=== PATIENT | female | born 1990 | race Caucasian/White ===

== ENCOUNTER → 2018-11-06 18:46 | Outpatient (CLI) | payer OTHER, SELFPAY ==
[2018-11-06 14:15] VITALS: BMI 33.3
[2018-11-06 23:13] LABS: Chlamydia Trachomatis by PCR Negative (Negative); Neisserai gonorrhoeae by PCR Negative (Negative); Probe Check PASS; Sample Adequacy Control PASS; Specimen Processing Control PASS
[2018-11-12 11:07] LABS: HPV APTIMA, High Risk Negative (Negative)
== END ==
PROVIDERS: Referring Provider Obstetrics & Gynecology; Visit Provider Obstetrics & Gynecology
DX: Z34.90 Encounter for supervision of normal pregnancy, unspecified, unspecified trimester (principal); Z12.4 Encounter for screening for malignant neoplasm of cervix
CPT/HCPCS: 87086; 87088; 87491; 87591; 87624; 88175; G0145

== ENCOUNTER → 2018-11-21 14:30 | Outpatient (CLI) | payer OTHER, SELFPAY ==
[2018-11-21 14:22] VITALS: BMI 33.3
[2018-11-21 16:13] LABS: Absolute Neutrophil Count 5.1 X10^3/uL (2.0-7.7); Basophil# 0.02 X10^3/uL; Basophil% 0.3 % (0-1); Eosinophil# 0.15 X10^3/uL; Eosinophils% 2.1 % (0-5); Hematocrit 37.5 % (37-47); Hemoglobin 12.1 g/dl (12.0-15.0); Lymphocyte % 20.6 % (19-41); Mean Corp Hgb Conc 32.3 g/gl (32-36); Mean Corpuscular Hgb 29.2 pg (27.0-32.0); Mean Corpuscular Volume 90.6 fL (81-99); Monocyte# 0.55 X10^3/uL; Monocyte% 7.6 % (0-10); Neutrophil # 5.05 X10^3/uL (2.7-7.7); Neutrophil % 69.3 % (47-70); Platelet Count 293 K/mm3 (150-450); RBC Distribution Width CV 13.6 % (11.6-14.6); RBC Distribution Width SD 44.5 fl (35.1-43.9); Red Blood Count 4.14 M/mm3 (4.2-5.4); White Blood Count 7.3 K/mm3 (4.4-11.0)
[2018-11-21 16:14] LABS: POSITIVE COUNT NO; POSITIVE DIFFERENTIAL NO; POSITIVE MORPHOLOGY NO
[2018-11-21 17:19] LABS: HIV - WCH Non-Reactive (Nonreactive); Rubella IgG 273.2 IU/mL
[2018-11-24 11:08] LABS: HEPATITIS B SURFACE AG Negative (Negative)
[2018-11-28 01:29] LABS: Rapid Plasmin Reagin (RPR) NONREACTIVE (NONREACTIVE)
== END ==
PROVIDERS: Referring Provider Obstetrics & Gynecology; Visit Provider Obstetrics & Gynecology
DX: Z34.90 Encounter for supervision of normal pregnancy, unspecified, unspecified trimester (principal)
CPT/HCPCS: 36415; 85025; 86592; 86703; 86762; 86850; 86900; 87340

== ENCOUNTER → 2018-12-19 10:25 | Outpatient (CLI) | payer OTHER, SELFPAY ==
[2018-12-19 09:57] VITALS: BMI 33.3
== END ==
PROVIDERS: Referring Provider Obstetrics & Gynecology; Visit Provider Obstetrics & Gynecology
DX: Z34.82 Encounter for supervision of other normal pregnancy, second trimester (principal)
CPT/HCPCS: 36415

== ENCOUNTER → 2019-03-20 | Outpatient (CLI) | payer OTHER, SELFPAY ==
[2019-03-20 10:51] VITALS: BMI 33.3
[2019-03-20 12:13] LABS: Absolute Lymphocyte Count 1.45 X10^3/uL (0.83-4.51); Absolute Neutrophil Count 6.1 X10^3/uL (2.0-7.7); Basophil# 0.02 X10^3/uL; Basophil% 0.2 % (0-1); Eosinophil# 0.17 X10^3/uL; Eosinophils% 2.1 % (0-5); Hematocrit 33.6 % (37-47); Hemoglobin 10.9 g/dL (12.0-15.0); Lymphocyte # 1.45 X10^3/ul (4.0); Lymphocyte % 17.5 % (19-41); Mean Corp Hgb Conc 32.4 g/dL (32-36); Mean Corpuscular Volume 89.4 fL (81-99); Monocyte# 0.51 X10^3/uL; Monocyte% 6.2 % (0-10); NRBC Flagged by Analyzer 0 % (0-5); Neutrophil % 73.5 % (47-70); Platelet Count 285 K/mm3 (150-450); RBC Distribution Width CV 13.3 % (11.6-14.6); RBC Distribution Width SD 43.6 fl (35.1-43.9); Red Blood Count 3.76 M/mm3 (4.2-5.4); White Blood Count 8.3 K/mm3 (4.4-11.0)
[2019-03-20 12:21] LABS: Glucose Challenge Gest 1H 50g 102 mg/dL (70-140)
== END | disposition home or self-care (01) ==
LOC: PAVLAB 11:35
PROVIDERS: Referring Provider Obstetrics & Gynecology; Visit Provider Obstetrics & Gynecology
DX: Z34.92 Encounter for supervision of normal pregnancy, unspecified, second trimester (principal)
CPT/HCPCS: 36415; 82950; 85025; 86850; 86900

== ENCOUNTER → 2019-05-15 13:03 | Outpatient (CLI) | payer OTHER, SELFPAY ==
[2019-05-15 12:21] VITALS: BMI 33.3
== END ==
PROVIDERS: Referring Provider Obstetrics & Gynecology; Visit Provider Obstetrics & Gynecology
DX: Z34.80 Encounter for supervision of other normal pregnancy, unspecified trimester (principal)
CPT/HCPCS: 87081

== ENCOUNTER → 2019-05-29 09:33 | Outpatient (CLI) | payer OTHER, SELFPAY ==
[2019-05-29 09:03] VITALS: BMI 33.3
[2019-05-29 09:59] LABS: Protein, Urine (Random) 26.3 mg/dL (<11.9); Protein:Creat Ratio 137 mg/g CRE (0-200)
== END ==
PROVIDERS: Visit Provider Obstetrics & Gynecology
DX: O16.3 Unspecified maternal hypertension, third trimester (principal); Z3A.00 Weeks of gestation of pregnancy not specified
CPT/HCPCS: 82570; 84156

== ENCOUNTER → 2019-06-05 11:43 | Outpatient (CLI) | payer OTHER, SELFPAY ==
[2019-06-05 11:32] VITALS: BMI 33.3
[2019-06-05 12:00] LABS: Protein, Urine (Random) 10.9 mg/dL (<11.9); Protein:Creat Ratio 195 mg/g CRE (0-200)
== END ==
PROVIDERS: Visit Provider Obstetrics & Gynecology
DX: O13.9 Gestational [pregnancy-induced] hypertension without significant proteinuria, unspecified trimester (principal); Z3A.00 Weeks of gestation of pregnancy not specified
CPT/HCPCS: 82570; 84156

== ENCOUNTER 2019-06-11 18:00 | Inpatient (IN) | payer OTHER, SELFPAY ==
[2019-03-20 10:51] VITALS: BMI 33.3
[2019-06-11 15:08] VITALS: BMI 33.3
[2019-06-11 16:10] VITALS: BMI 40.2
[2019-06-11 16:18] LABS: Hematocrit 31.8 % (37-47); Hemoglobin 10.1 g/dL (12.0-15.0); Mean Corp Hgb Conc 31.8 g/dL (32-36); Mean Corpuscular Hgb 27.3 pg (27.0-32.0); Mean Corpuscular Volume 85.9 fL (81-99); Mean Platelet Vol. 10.1 fl (6.2-12.0); Platelet Count 267 K/mm3 (150-450); RBC Distribution Width CV 13.7 % (11.6-14.6); RBC Distribution Width SD 42.6 fl (35.1-43.9); White Blood Count 7.5 K/mm3 (4.4-11.0)
[2019-06-11 16:32] LABS: Prothrombin Time (Protime)PT. 13.2 SECONDS (11.7-14.9)
[2019-06-11 16:33] LABS: Partial Thromboplast Time 29.9 Seconds (24.1-36.2)
[2019-06-11 17:01] LABS: AST(SGOT) 14 U/L (15-37); Alanine Aminotransfer ALT/SGPT 13 U/L (13-56); EST Glomerular Filtration Rate 103 mL/min (>60); Est Glom Filt Rate - Afr Amer 124 mL/min (>60); Estimated Creatinine Clearance 130.15 ml/min; Uric Acid 4.2 mg/dL (2.6-6.0)
[2019-06-11 17:04] LABS: Protein, Urine (Random) < 6.0 mg/dL (<11.9)
--- NOTE | 2019-06-11 18:09 | PCM.HP.OB ---
- Problem List (1) Anemia affecting Status: Acute Qualifiers: Trimester: third trimester Qualified Code(s): O99.013 - Anemia complicating , third trimester Comment: iron (2) Influenza vaccination declined Status: Acute Comment: 06/05/2019 (3) Obesity affecting Status: Acute Qualifiers: Trimester: third trimester Qualified Code(s): O99.213 - Obesity complicating , third trimester Comment: Declined 1 hour glucose, encouraged healthy weight gain (4) Status: Acute Qualifiers: Weeks of gestation: 39 weeks Qualified Code(s): Z3A.39 - 39 weeks gestation of Comment: NIPT- low risk girl, declined Carrier and AFP screening. Normal anatomy (5) Rh negative status during Status: Acute Qualifiers: Trimester: third trimester Qualified Code(s): O26.893 - Other specified related conditions, third trimester; Z67.91 - Unspecified blood type, Rh negative Comment: O negative; RhoGam given 03/20 (6) Supervision of other normal Status: Acute Comment: PRR YOVANY 06/12/2019 girl (secret) PC: Kaylin Spouse: Daniel History Date of Admission: 06/11/19 Final YOVANY: 06/12/19 Gestational age: 40 Weeks and 0 Days History of this : This is a 29 year-old, at 40 weeks gestational age presents with elevated blood pressures in the 140s over 90s to 150s over 100s. Patient denies any headaches blurry vision vaginal bleeding or loss of fluid. Patient has had an uncomplicated prior to her routine visit today. Labs were within normal limits and there is no proteinuria present but due to persistent elevated blood pressures the decision was made for induction of labor due to gestational hypertension. Surgical History: Surgical History (Last Reviewed 06/11/19 @ 15:08 by Saniya Barraza) History of tonsillectomy Z90.89 Allergies ciprofloxacin [From Cipro] Allergy (Mild, Verified 06/11/19 16:14) Other Home Medications: Home Medications vitamin#30 30 mg iron-10 mg iron-folic acid 1 mg-omg3 capsule 1 cap PO DAILY cap 11/06/18 Smoking Status: Never smoker Alcohol: None Number of Fetus(es): 1 NST - FHR Rate Baby A Baseline: 130 Variability:: Moderate Accelerations:: 15 x 15 Decelerations:: None NST Reactive:: Yes FHR Category:: Category I Uterine Activity:: no regular History Past Pregnancies: Past Pregnancies 2 previous term uncomplicated home births Labs: Mom's Labs & Results 06/11/19 06/11/19 06/11/19 16:00 16:00 16:00 WBC 7.5 RBC 3.70 L Hgb 10.1 L Hct 31.8 L MCV 85.9 MCH 27.3 MCHC 31.8 L RDW Std Deviation 42.6 RDW Coeff of Kellee 13.7 Plt Count 267 MPV 10.1 PT 13.2 INR 1.0 APTT 29.9 Creatinine 0.70 Estim Creat Clear Calc 130.15 Est GFR (MDRD) Af Amer 124 Est GFR (MDRD) Non-Af 103 Uric Acid 4.2 AST 14 L ALT 13 U Random Total Protein Urine Creatinine Protein/Creatinin Ratio Blood Type Antibody Screen 06/11/19 06/11/19 16:00 16:20 WBC RBC Hgb Hct MCV MCH MCHC RDW Std Deviation RDW Coeff of Kellee Plt Count MPV PT INR APTT Creatinine Estim Creat Clear Calc Est GFR (MDRD) Af Amer Est GFR (MDRD) Non-Af Uric Acid AST ALT U Random Total Protein < 6.0 Urine Creatinine 23.80 Protein/Creatinin Ratio TNP Blood Type O NEGATIVE Antibody Screen NEGATIVE Course Did the patient receive Yes care? Labs Blood Type: O RH: NEGATIVE RPR/VDRL/Syphilis Nonreactive Rubella status Immune HbSAg Negative Date Done: 11/21/18 Chlamydia Negative Gonorrhea Negative HIV/AIDS Non-Reactive Group B Strep: Negative Current Obstetrical History Gestational Diabetes No Incompetent Cervix No Infertility No IUGR No Macrosomia No: MEASURING A LITTLE LARGE ON ULTRASOUND. NEVER SAID MACROSOMIA Hypertension/Pre-eclampsia Yes: THROUGHOUT Placenta Previa/Abruption No PTL/PROM No Uterine anomaly No Oligohydramnios No Polyhydramnios No Multiple gestation No Past Medical History Asthma No Diabetes No Hypertension No Heart disease No Mitral valve prolapse No Neurologic/Seizure disorder/ No Migraines Kidney disease No Liver disease No Varicosities Yes: LEFT KNEE Clotting disorders/Hx of DVT No Thyroid Dysfunction No Other medical diseases No Psychiatric disorders No Major trauma No Abnormal PAP smear No Sleep apnea No Mammogram in the last 2 years No Social History Marital Status: Alleged father DANIEL Beaver Smoking No Smoking Status Never smoker How long have you used none substances (years)? Expected Infant Delivery Method: Spontaneous Vaginal Review of Systems Constitutional: Denies: Fever, Malaise Eyes: Denies: Blurred vision, Vision Change HEENT: Denies: Head Aches, Visual Changes Cardiovascular: Denies: Chest Pain, Palpitations Respiratory: Denies: Cough, Shortness of Breath, Wheezing Gastrointestinal: Denies: Abdominal Pain, Diarrhea, Nausea, Vomiting Genitourinary: Denies: Dysuria, Hematuria Musculoskeletal: Denies: Joint Pain, Muscle pain Skin: Denies: Lesions, Rash Neurological: Denies: Blurred vision, Focal weakness, Headaches Psychiatric: Denies: Anxiety, Depression Endocrine: Denies: Heat/ Cold Intolerance Hematologic/ Lymphatic: Denies: Easy Bruising, Easy Bleeding Physical Exam General: Alert, Cooperative, No apparent distress HEENT: Atraumatic, Normocephalic. Negative for: Thyromegaly, Lymphadenopathy Cardiovascular: Regular rate Lungs: Normal air movement Abdomen: Soft, Non Tender, Gravid Neurological: Deep Tendon Reflexes 2+/4 and Symmetrical, Neuro grossly intact. Negative for: Clonus [employer]: Normal external genitalia. Negative for: Vulvar lesions Estimated gestational size: Appropriate for gestational size Presentation: Cephalic Cervix Dilation (cm): 3 Station: -2 Effacement (%): 70 Assessment/Plan All Active Problems (Last Reviewed 06/11/19 @ 15:08 by Saniya Barraza) Influenza vaccination declined (Acute) Anemia affecting (Acute) Rh negative status during (Acute) Obesity affecting (Acute) (Acute) Supervision of other normal (Acute) This is a 29 year-old, at 40 weeks gestational age presents IOL GHTN Patient presents IOL, plan management for , pitocin/AROM when needed. Pain management: Plans epidural. GBS negative. Management of any complications: Gestational hypertension?monitor blood pressures and treat if severely elevated I have reviewed the [facility] and made any clinically relevant updates.
[2019-06-11] MEDS: Oxytocin 30 units/NS 500 ml 30 UNITS/500 ML IV.SOLN IV (20:18)
[2019-06-11] MEDS: Lactated Ringers 1,000 ML 50 ML IV (20:18)
[2019-06-12] MEDS: Lactated Ringers 500 ML 999 ML IV (02:09)
[2019-06-12] MEDS: fentaNYL-bupivacaine (epidural) 100 ML BAG EPIDURAL (02:55)
[2019-06-12] MEDS: 0.9% Saline Lock 10 ML Syringe IV ×2 (04:56→10:18)
[2019-06-12] MEDS: Ondansetron 4 MG/2 ML Vial IV (04:56)
[2019-06-12] MEDS: Oxytocin 30 units/NS 500 ml 30 UNITS/500 ML IV.SOLN 334 UNITS IV (07:58)
[2019-06-12] MEDS: Naproxen 250 MG Tablet 500 MG PO (12:17)
[2019-06-12 15:41] VITALS: BP 119/77; PULSE 89; RESP 14; TEMP 36.7
[2019-06-12] MEDS: Acetaminophen 500 MG Tablet 1000 MG PO (17:36)
[2019-06-12 20:17] VITALS: BP 129/77; PULSE 84; RESP 16; TEMP 36.7; O2SAT 97
[2019-06-13 00:03] VITALS: BP 131/82; PULSE 89; RESP 18; TEMP 36.7; O2SAT 97
[2019-06-13] MEDS: 0.9% Saline Lock 10 ML Syringe IV (00:05)
[2019-06-13 04:07] VITALS: BP 137/87; PULSE 84; RESP 18; TEMP 37
--- NOTE | 2019-06-13 08:43 | PCM.OPRPT ---
Problem List (1) Anemia affecting Status: Acute Qualifiers: Trimester: third trimester Qualified Code(s): O99.013 - Anemia complicating , third trimester Comment: iron (2) Influenza vaccination declined Status: Acute Comment: 06/05/2019 (3) Obesity affecting Status: Acute Qualifiers: Trimester: third trimester Qualified Code(s): O99.213 - Obesity complicating , third trimester Comment: Declined 1 hour glucose, encouraged healthy weight gain (4) Status: Acute Qualifiers: Weeks of gestation: 39 weeks Qualified Code(s): Z3A.39 - 39 weeks gestation of Comment: NIPT- low risk girl, declined Carrier and AFP screening. Normal anatomy (5) Rh negative status during Status: Acute Qualifiers: Trimester: third trimester Qualified Code(s): O26.893 - Other specified related conditions, third trimester; Z67.91 - Unspecified blood type, Rh negative Comment: O negative; RhoGam given 03/20 (6) Supervision of other normal Status: Acute Comment: PRR YOVANY 06/12/2019 girl (secret) PC: Kaylin Spouse: Daniel Vaginal Delivery Maternal Presentation: Medically Indicated Induction iol ghtn Method of Induction: Pitocin Medical Reason for Induction: Gestational Hypertension Amniotic Membrane Rupture Type: Artificial Amniotic Fluid Description: Clear Final YOVANY: 06/12/19 Gestational age: 40 Weeks and 1 Days Surgery/ Procedure Performed: Spontaneous Vaginal Delivery Type of Anesthesia: Epidural Description of Procedure: Patient began pushing and delivered the head in the [KAYLYNN] presentation. The head was delivered atraumatically. The anterior and posterior shoulders delivered without complication followed by the rest of the and the infant was placed on the maternal abdomen. Delayed cord clamping was employed for approximately 60 seconds. Cord was clamped and cut and gentle traction was applied to the cord and the placenta delivered spontaneously immediately following it was noted to be intact with three-vessel cord. The perineum and vagina were inspected and noted to have a second-degree perineal laceration. There is significant scar tissue and disruption of normal anatomy inherently present likely due to HER-2 previous home births with repairs. While the patient was pushing it was evident that there was no integrity to the perineal body or the posterior vaginal wall and the labia were grossly distorted with a significant skin tag due to incomplete vaginal closure from previous delivery. Layers of the rectovaginal tissue underneath the vaginal mucosa posteriorly were reapproximated to restore integrity to the anatomy and then a running locking stitch was started at the apex of the laceration and carried through to the introitus. The previous skin tag and scar tissue was excised and the perineal body rebuilt reapproximated the bulbocavernosus muscles. 3-0 Vicryl Rapide was used. Multiple dilated veins were encountered and [id number] sutures were used to not only provide structure to the distorted anatomy planes and to rebuild and restore normal anatomy but for hemostasis. Subcuticular closure was then done to reapproximate the labia and perineal body and overlying skin. The vagina was checked and noted to be able to have 2 fingers easily inserted at the introitus to allow appropriate introital size. Some bleeding was noted over the raw area of the introitus and therefore fibrillar was placed over the area and it was noted to have excellent hemostasis.. EBL was 600 cc. Patient and infant tolerated delivery well. Presentation: KAYLYNN Placental Delivery Description: Spontaneous Estimated Blood Loss: 600 Infant A gender: Female Episiotomy Description: None Laceration: Perineal Extension/lac, 2nd degree Medications given after delivery: IV Pitocin Complications: None Multi Select Codes - Urinary/Genital Urinary/Genital CPT Codes: 83170 Vaginal Delivery [facility]
--- NOTE | 2019-06-13 08:48 | DCINST_ITS ---
Discharge Diet: No Restrictions Discharge Activity: Return to Normal Activity, May not drive while taking narcotic pain medications., May Shower May resume sexual activity in: 4-6 weeks Call your doctor if your incision/area has: Continuous Slow Oozing, Sudden Increased Bleeding, Increased Pain/ Swelling, Increased Redness, Foul Smelling Discharge Additional Instructions: If you experience any of the following, contact your healthcare provider. * Bleeding that soaks a pad every hour for 2 hours * Fever 100.4 or higher * Unrelieved incision or abdominal pain * Swelling, redness, discharge or bleeding from your incision or episiotomy site * Your incision begins to separate * Problems urinating (including inability to urinate or burning while urinating). * Visual changes * Severe headache * Flu-like symptoms * Pain or redness in one of both of your breasts * Pain, warmth, tenderness or swelling in your legs, especially the calf area * Frequent nausea and vomiting * Symptoms of depression or anxiety If you experience any of the following, call 911 or go to the nearest Emergency Room. * Chest pain * Problems breathing * Seizure activity * Partial or complete paralysis of a body part, slurred speech, weakness or drooping of the face, or a sudden inability to walk or hold your balance Allergies/Adverse Reactions: Allergies ciprofloxacin [From Cipro] Allergy (Mild, Verified 06/11/19 16:14) Other Medications to take at Discharge vitamin#30 30 mg iron-10 mg iron-folic acid 1 mg-omg3 capsule 1 cap PO DAILY cap 11/06/18 Please Follow Up With: Jessie Nicholson MD - [phone] When: Call to make an appointment with your doctor in 6 weeks. If you had elevated Blood pressure or 4th degree laceration you will need to be seen in 2 weeks. Primary Care Physician: Care Physician,No Primary [Primary Care Provider] - Test Results: Test results from this visit will be discussed in further detail at your follow- up appointment, if applicable.
--- NOTE | 2019-06-13 08:48 | PCM.DCVAG ---
Discharge Diet: No Restrictions Discharge Activity: Return to Normal Activity, May not drive while taking narcotic pain medications., May Shower May resume sexual activity in: 4-6 weeks Call your doctor if your incision/area has: Continuous Slow Oozing, Sudden Increased Bleeding, Increased Pain/ Swelling, Increased Redness, Foul Smelling Discharge Additional Instructions: If you experience any of the following, contact your healthcare provider. Bleeding that soaks a pad every hour for 2 hours Fever 100.4 or higher Unrelieved incision or abdominal pain Swelling, redness, discharge or bleeding from your incision or episiotomy site Your incision begins to separate Problems urinating (including inability to urinate or burning while urinating). Visual changes Severe headache Flu-like symptoms Pain or redness in one of both of your breasts Pain, warmth, tenderness or swelling in your legs, especially the calf area Frequent nausea and vomiting Symptoms of depression or anxiety If you experience any of the following, call 911 or go to the nearest Emergency Room. Chest pain Problems breathing Seizure activity Partial or complete paralysis of a body part, slurred speech, weakness or drooping of the face, or a sudden inability to walk or hold your balance Allergies/Adverse Reactions: Allergies ciprofloxacin [From Cipro] Allergy (Mild, Verified 06/11/19 16:14) Other Medications to take at Discharge vitamin#30 30 mg iron-10 mg iron-folic acid 1 mg-omg3 capsule 1 cap PO DAILY cap 11/06/18 Please Follow Up With: Jessie Nicholson MD - [phone] When: Call to make an appointment with your doctor in 6 weeks. If you had elevated Blood pressure or 4th degree laceration you will need to be seen in 2 weeks. Primary Care Physician: Care Physician,No Primary [Primary Care Provider] - Test Results: Test results from this visit will be discussed in further detail at your follow-up appointment, if applicable.
--- NOTE | 2019-06-13 08:48 | PCM.PN.OB ---
Subjective: doing well no complaints pain controlled no CP SOB N V ambulating well tolerating po lochia moderate, going well - Physical Exam General: Alert, Oriented x3 Vital Signs Temp Pulse Resp BP Pulse Ox 98.6 F 84 18 137/87 H 97 06/13/19 04:07 06/13/19 04:07 06/13/19 04:07 06/13/19 04:07 06/13/19 00:03 Oxygen Delivery Method Room Air Weight: 288 lb 8 oz Body Mass Index (BMI) 40.2 Intake and Output for Last 24 Hours 06/11/19 06/12/19 06/13/19 23:59 23:59 23:59 Intake Total 16.03 / 16.03 2575.93 / 2575.93 Output Total 200 / 200 2955 / 2955 1522 / 1522 Balance -183.97 / -183.97 -379.07 / -379.07 -1522 / -1522 Laboratory Tests Past 24 Hrs 06/12/19 09:30 Screen NEGATIVE Baby's Blood Type O POSITIVE Baby's SMILEY NEGATIVE Medical Necessity - Tobacco Use Smoking Status: Never smoker Assessment/Plan All Active Problems (Last Reviewed 06/11/19 @ 15:08 by Saniya Barraza) Influenza vaccination declined (Acute) Anemia affecting (Acute) Rh negative status during (Acute) Obesity affecting (Acute) (Acute) Supervision of other normal (Acute) s/p PPD # 1 1. routine post delivery care 2. breast feeding- support given 3. rh negative rhogam PRN 4. rubella immune
[2019-06-13 09:30] VITALS: BP 139/73; PULSE 72; RESP 16; TEMP 36.6
[2019-06-13] MEDS: Acetaminophen 500 MG Tablet 1000 MG PO (11:28)
[2019-06-13 14:00] VITALS: BP 148/82; PULSE 88; RESP 18; TEMP 36.4
[2019-06-13 14:26] VITALS: BP 148/82; PULSE 88; RESP 18; TEMP 36.4
== END 2019-06-13 15:00 | disposition home or self-care (01) | DRG 806 ==
LOC: WPOUT 18:06 → WP 18:06
PROVIDERS: Admitting Provider Obstetrics & Gynecology; Referring Provider Obstetrics & Gynecology; Visit Provider Obstetrics & Gynecology
DX: O13.4 Gestational [pregnancy-induced] hypertension without significant proteinuria, complicating childbirth (principal); O36.0130 Maternal care for anti-D [Rh] antibodies, third trimester, not applicable or unspecified; Z37.0 Single live birth; O99.02 Anemia complicating childbirth; D64.9 Anemia, unspecified; O34.63 Maternal care for abnormality of vagina, third trimester; O70.1 Second degree perineal laceration during delivery; O99.214 Obesity complicating childbirth; E66.9 Obesity, unspecified; Z3A.40 40 weeks gestation of pregnancy; Z28.21 Immunization not carried out because of patient refusal
CPT/HCPCS: 59025; 59050; 82565; 82570; 84156; 84450; 84460; 84550; 85027; 85461; 85610; 85730; 86850; 86900; 86901; 90384; 99218; J7120; A4216; G0378; J2405; J2790

== ENCOUNTER → 2020-09-09 16:36 | Outpatient (CLI) | payer OTHER, SELFPAY ==
--- NOTE | 2020-09-09 | LES_PTH ---
PATIENT: EDDIE TORIBIO LOC: [facility] U#:[id number] AGE/SX: 35/F ROOM: RE09/09/[address]: Dr. Soraida Covarrubias MD : 1990 BED: DIS: SPEC #: [id number] RECD: 09/09/20 16:18 STATUS: PATRICK JAME #: [id number] JC: 09/09/20 00:[address]: Soraida Covarrubias DEPT: SURGICAL PATHOLOGY RECD BY: Asaf Espinoza ENTERED: 09/12/20 08:15 SP TYPE: Lesion OTHR DR: No Primary Care Phys Tissues: VERRUCA Procedures: Surgery Specimen Level IV HEADER OPERATION: Mole removal PRE-OP DIAGNOSIS: Atypical mole TISSUE SUBMITTED: Mole removal MICROSCOPIC DIAGNOSIS Mole, not further specified, removal: Seborrheic keratosis. AM:sanjay 09/13/2020 MICROSCOPIC DESCRIPTION Slides are reviewed. GROSS DESCRIPTION Received is one container labeled with the patient's name and not further designated. The specimen consists of a piece of stevens-white skin measuring 0.6 x 0.5 x 0.2 cm. The specimen is inked and submitted entirely in one cassette. It will be bisected at the time of embedding. / SJ:rg 09/12/20 TC:5 CPT: 24350
[2020-09-09 15:24] VITALS: BMI 36.7
== END ==
PROVIDERS: Referring Provider Obstetrics & Gynecology; Visit Provider Obstetrics & Gynecology
DX: D22.9 Melanocytic nevi, unspecified (principal)
CPT/HCPCS: 88305

== ENCOUNTER → 2022-07-06 | Outpatient (CLI) | payer BC, SELFPAY ==
[2022-07-06 11:13] LABS: NATERA MAILED SPECIMEN
== END | disposition home or self-care (01) ==
LOC: PAVLAB 10:11
PROVIDERS: Referring Provider Nurse Practitioner Women's Health; Visit Provider Nurse Practitioner Women's Health
DX: Z00.00 Encounter for general adult medical examination without abnormal findings (principal); Z80.3 Family history of malignant neoplasm of breast
CPT/HCPCS: 36415

== ENCOUNTER → 2022-08-10 | Outpatient (CLI) | payer BC, SELFPAY ==
--- NOTE | 2022-08-10 12:49 | BI_ITS ---
MAMMOGRAPHY - BILATERAL SCREENING REASON FOR EXAM: Female, 32 years old. Routine annual screening examination. PERTINENT HISTORY: Mother with breast cancer. Aunt with breast cancer. TECHNIQUE: Digital bilateral breast les (3D mammographic acquisition) in the CC and MLO projections. 2-D mediolateral oblique (MLO) and craniocaudad (CC) views of both breasts were obtained. CAD: Full Field Digital Mammography with Computer Added Detection was performed. COMPARISON: None. Baseline examination. FINDINGS: Breast Composition: The breasts are heterogeneously dense, which may obscure small masses. There are no dominant masses or suspicious calcifications. No other significant abnormalities are identified. BI/SCRN MAMM (CAD)W/LES BILAT IMPRESSION: Negative screening mammogram. Yearly followup mammogram recommended. (A) ASSESSMENT CATEGORY: BIRADS Category 1: Negative. A letter regarding these results will be sent to the patient by the facility within 30 days. Approximately 10% of breast cancers are not detected by mammography. A normal mammogram should not delay biopsy of a clinically suspicious abnormality. [id number] Electronically Signed: Robles Otero MD at 14:45 EST ,
--- NOTE | 2022-08-10 12:49 | US_ITS ---
STUDY: ULTRASOUND OF THE FEMALE PELVIS - COMPLETE REASON FOR EXAM: Female, 32 years old. +PALB2 gene LMP: 07/29/2022 TECHNIQUE: Transabdominal and Transvaginal TECHNICAL QUALITY: Adequate. COMPARISON: None. FINDINGS: The uterus is anteverted and is in a midline position. The uterus measures 9.8 x 6.0 x 5.4 cm. Normal uterine cervix. The endometrium measures 10.3 mm in thickness, and is heterogeneous (striated). There is no demonstrated endometrial mass. There is no demonstrated myometrial mass. I.U.D. - The patient does not have an I.U.D. The right ovary is visualized. The right ovary measures 2.9 x 2.4 x 2.0 cm. There is no right ovarian cyst or ovarian mass. There is no visualized right adnexal mass or complex lesion. There is normal arterial and normal venous vascularity. The left ovary is visualized. The left ovary measures 3.6 x 3.3 x 2.4 cm. 2.5 x 1.8 x 1.9 cm ovarian cyst. There is no visualized left adnexal mass or complex lesion. There is normal arterial and normal venous vascularity. There is no fluid in the cul-de-sac. The pre void volume of the bladder was 164 ml. Polycystic ovary disease: No. US/Pelvic (Non ) IMPRESSION: 2.5 cm left ovarian cyst. No other abnormal finding in the pelvis. Electronically Signed: Edson Zhou MD at 17:00 EST ,
== END | disposition home or self-care (01) ==
PROVIDERS: PCP Family Medicine; Referring Provider Nurse Practitioner Women's Health; Visit Provider Nurse Practitioner Women's Health
DX: Z12.31 Encounter for screening mammogram for malignant neoplasm of breast (principal); Z15.01 Genetic susceptibility to malignant neoplasm of breast; N83.202 Unspecified ovarian cyst, left side; Z80.3 Family history of malignant neoplasm of breast
CPT/HCPCS: 76830; 76856; 77063; 77067

== ENCOUNTER → 2022-08-17 | Outpatient (CLI) | payer BC, SELFPAY ==
[2022-08-18 15:01] LABS: Cancer Antigen 125 14.8 U/mL (0.0-38.1)
== END | disposition home or self-care (01) ==
LOC: LAB 10:43
PROVIDERS: PCP Family Medicine; Referring Provider Nurse Practitioner Women's Health; Visit Provider Nurse Practitioner Women's Health
DX: Z15.01 Genetic susceptibility to malignant neoplasm of breast (principal); Z15.09 Genetic susceptibility to other malignant neoplasm; Z15.89 Genetic susceptibility to other disease
CPT/HCPCS: 36415; 86304

== ENCOUNTER → 2022-10-04 | Outpatient (CLI) | payer BC, SELFPAY ==
--- NOTE | 2022-10-04 10:51 | MRI_ITS ---
STUDY: BILATERAL BREAST MR WITHOUT AND WITH CONTRAST REASON FOR EXAM: Female, 32 years old. Family hx of breast cancer. TECHNIQUE: Multi-sequence multi-echo imaging of both breasts was performed with a dedicated breast coil. T1-weighted and T2-weighted images were performed before the administration of contrast. T1-weighted images were also performed after the intravenous administration of 25ml of Clariscan contrast. COMPARISON: Bilateral mammogram dated August 10, 2022. FINDINGS: RIGHT BREAST: Scattered fibroglandular tissue with no background enhancement. There are no abnormal enhancing masses or areas of non-mass enhancement in the right breast. LEFT BREAST: Scattered fibroglandular tissue with no background enhancement. There are no abnormal enhancing masses or areas of non-mass enhancement in the left breast. There are no enlarged or abnormal lymph nodes. There is no abnormality in the visualized regions of the chest or liver. MRI/Breast Bilateral W/O and W IMPRESSION: No abnormality of the breast MRI examination with contrast. Given the history, alternating breast MRI with screening mammography would be appropriate. CATEGORY: BIRADS Category 1: Negative. A letter regarding these results will be sent to the patient by the facility within 30 days. Electronically Signed: Royal Khalil, at 12:56 EST ,
== END | disposition home or self-care (01) ==
PROVIDERS: PCP Family Medicine; Referring Provider Nurse Practitioner Women's Health; Visit Provider Nurse Practitioner Women's Health
DX: Z15.01 Genetic susceptibility to malignant neoplasm of breast (principal); Z15.09 Genetic susceptibility to other malignant neoplasm; Z15.89 Genetic susceptibility to other disease; Z80.3 Family history of malignant neoplasm of breast
CPT/HCPCS: 77049; A9575; A4216; C8908

== ENCOUNTER → 2023-04-04 | Outpatient (CLI) | payer OTHER, SELFPAY ==
--- NOTE | 2023-04-04 13:32 | BI_ITS ---
MAMMOGRAPHY - BILATERAL SCREENING REASON FOR EXAM: Female, 33 years old. Routine annual screening examination. PERTINENT HISTORY: Mother with breast cancer. Aunt with breast cancer. TECHNIQUE: Digital bilateral breast les (3D mammographic acquisition) in the CC and MLO projections. 2-D mediolateral oblique (MLO) and craniocaudad (CC) views of both breasts were obtained. CAD: Full Field Digital Mammography with Computer Added Detection was performed. COMPARISON: Comparison is made with prior study dated August 10, 2022. Comparison is also made with prior MRI of the breasts dated October 04, 2022. FINDINGS: Breast Composition: The breasts are heterogeneously dense, which may obscure small masses. There are no dominant masses or suspicious calcifications. No other significant abnormalities are identified. There has been no significant change since the prior study. BI/SCRN MAMM (CAD)W/LES BILAT IMPRESSION: Stable bilateral screening mammogram. Yearly follow-up mammogram recommended. (A) ASSESSMENT CATEGORY: BIRADS Category 1: Negative. A letter regarding these results will be sent to the patient by the facility within 30 days. Approximately 10% of breast cancers are not detected by mammography. A normal mammogram should not delay biopsy of a clinically suspicious abnormality. [id number] Electronically Signed: Robles Otero MD at 15:20 EDT ,
== END | disposition home or self-care (01) ==
LOC: OPBI 13:31
PROVIDERS: PCP Family Medicine; Referring Provider Nurse Practitioner Women's Health; Visit Provider Nurse Practitioner Women's Health
DX: Z12.31 Encounter for screening mammogram for malignant neoplasm of breast (principal)
CPT/HCPCS: 77063; 77067

== ENCOUNTER → 2023-08-07 | Outpatient (CLI) | payer OTHER, SELFPAY ==
--- NOTE | 2023-08-07 11:06 | US_ITS ---
INDICATION: + Palb2 EXAMINATION: Ultrasound US Pelvis Non OB Complete With Transvaginal Imaging TECHNIQUE: Transabdominal and transvaginal pelvic ultrasound was performed. Grayscale, spectral waveform, and color flow Doppler evaluation of the adnexa. COMPARISON: 08/10/2022 FINDINGS: UTERUS: Anteverted. The uterus measures 10.1 x 6.2 x 5.4. There is no uterine mass. Nabothian cysts present within the cervix. The endometrial stripe measures 12 mm in AP diameter which is within normal limits. RIGHT OVARY: Measures 4.2 x 3.7 x 2.5 cm. Non-enlarged, normal echogenicity. There is a 2.3 cm physiologic follicle. No follow-up imaging recommended. There is normal arterial inflow and venous outflow present in the right ovary. LEFT OVARY: Measures 3.3 x 2.3 x 2.2 cm. Non-enlarged, normal echogenicity. There is normal arterial inflow and venous outflow present in the left ovary. FREE FLUID: None. US/Pelvic (Non ) IMPRESSION: Unremarkable pelvic ultrasound. Electronically Signed: Andres Lu MD at 18:26 EST Reading Location ID and State: [facility] Tel , Service support ,
--- NOTE | 2023-08-07 11:06 | US_ITS ---
INDICATION: + Palb2 EXAMINATION: Ultrasound US Pelvis Non OB Complete With Transvaginal Imaging TECHNIQUE: Transabdominal and transvaginal pelvic ultrasound was performed. Grayscale, spectral waveform, and color flow Doppler evaluation of the adnexa. COMPARISON: 08/10/2022 FINDINGS: UTERUS: Anteverted. The uterus measures 10.1 x 6.2 x 5.4. There is no uterine mass. Nabothian cysts present within the cervix. The endometrial stripe measures 12 mm in AP diameter which is within normal limits. RIGHT OVARY: Measures 4.2 x 3.7 x 2.5 cm. Non-enlarged, normal echogenicity. There is a 2.3 cm physiologic follicle. No follow-up imaging recommended. There is normal arterial inflow and venous outflow present in the right ovary. LEFT OVARY: Measures 3.3 x 2.3 x 2.2 cm. Non-enlarged, normal echogenicity. There is normal arterial inflow and venous outflow present in the left ovary. FREE FLUID: None. US/Transvaginal Non- IMPRESSION: Unremarkable pelvic ultrasound. Electronically Signed: Andres Lu MD at 18:26 EST Reading Location ID and State: [facility] Tel , Service support ,
== END | disposition home or self-care (01) ==
LOC: OPUS 11:04
PROVIDERS: PCP Family Medicine; Referring Provider Nurse Practitioner Women's Health; Visit Provider Nurse Practitioner Women's Health
DX: Z15.01 Genetic susceptibility to malignant neoplasm of breast (principal); Z15.89 Genetic susceptibility to other disease; Z80.3 Family history of malignant neoplasm of breast
CPT/HCPCS: 76830; 76856

== ENCOUNTER → 2024-03-23 | Outpatient (CLI) | payer OTHER, SELFPAY ==
[2024-03-23 12:55] LABS: Ferritin 15 ng/mL (8-252); Free T3 2.5 pg/mL (2.18-3.98); T4 Free Direct 1.01 ng/dL (0.76-1.46); Thyroid Stim Hormone (TSH) 1.43 uIU/mL (0.358-3.74)
[2024-03-27 12:10] LABS: HPV APTIMA, High Risk Negative (Negative)
== END | disposition home or self-care (01) ==
PROVIDERS: Nurse Practitioner Women's Health; PCP Family Medicine
DX: Z12.4 Encounter for screening for malignant neoplasm of cervix (principal); E34.9 Endocrine disorder, unspecified; E55.9 Vitamin D deficiency, unspecified; R53.83 Other fatigue; Z13.220 Encounter for screening for lipoid disorders
CPT/HCPCS: 36415; 82306; 82728; 84439; 84443; 84481; 87624; 88175; G0145

== ENCOUNTER → 2024-04-10 | Outpatient (CLI) | payer OTHER, SELFPAY ==
--- NOTE | 2024-04-10 10:36 | BI_ITS ---
MAMMOGRAPHY - BILATERAL SCREENING 3-D TOMOSYNTHESIS REASON FOR EXAM: Female, 34 years old. 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 TECHNIQUE: 2-D mammograms and 3-D Tomosynthesis of the breast (s) were performed. CAD was performed. COMPARISON: 04/04/2023 FINDINGS: The breast composition is composed of scattered fibroglandular density. Scattered benign calcifications are seen. No dense spiculated masses or suspicious microcalcifications are identified. No architectural distortion is identified. There is no skin thickening or retraction. There has been no significant change since the prior study. BI/SCRN MAMM (CAD)W/LES BILAT IMPRESSION: No mammographic signs of malignancy. Routine yearly mammograms recommended. ASSESSMENT CATEGORY: BIRADS Category 1: Negative. A letter regarding these results will be sent to the patient by the facility within 30 days. FOLLOW UP RECOMMENDATION: Yearly follow up mammogram recommended. (A) Approximately 10% of breast cancers are not detected by mammography. A normal mammogram should not delay biopsy of a clinically suspicious abnormality. Electronically Signed: Kalin Villa MD at 13:28 EDT ,
== END | disposition home or self-care (01) ==
LOC: OPBI 10:35
PROVIDERS: PCP Family Medicine; Referring Provider Nurse Practitioner Women's Health; Visit Provider Nurse Practitioner Women's Health
DX: Z12.31 Encounter for screening mammogram for malignant neoplasm of breast (principal)
CPT/HCPCS: 77063; 77067